=== PATIENT | male | born 1980 ===

== ENCOUNTER 2019-06-01 13:57 | Outpatient (CLI) | payer OTHER ==
--- NOTE | 2019-06-10 11:03 | CT ---
CT CORONARY ARTERY CALCIUM SCORING: Date: 06/01/2019 HISTORY: Hypercholesterolemia. FINDINGS: The coronary artery calcium scoring was performed with CT scan using the AJ-130 protocol. The total coronary artery calcium score is 1 with calcified plaques seen only in the right coronary a rtery. No pleural or pericardial effusions are seen. The visualized lung bowman are clear. IMPRESSION: Total coronary artery calcium score is 1. POS: JOELLE
== END 2019-06-01 13:58 | disposition home or self-care (01) ==
LOC: BICCT 13:57
PROVIDERS: ATTEND Obstetrics & Gynecology
DX: Z13.6 Encounter for screening for cardiovascular disorders (principal)
CPT/HCPCS: 75571